=== PATIENT | female | born 1995 | race Caucasian/White ===

== ENCOUNTER 2017-01-23 23:21 | Emergency (ER) | payer BC ==
[~2017-01-23] VITALS: Ht 165.1 cm; Wt 37.7 kg
[~2017-01-23 23:21] MED LIST: MOTRIN 600600 MG/TAB PO; PERCOCET 325 MG1 TA2 PO; PRENATAL MVI PO
[2017-01-23 23:26] VITALS: TEMP 97.2
[2017-01-23] MEDS ORDERED: ULTRAM 50MG TAB50 MG PO (23:46)
[2017-01-23] MEDS ORDERED: ZOFRAN ODT4 MG PO (23:46)
[2017-01-24 00:03] LABS: BASO % 0.2 % (0.0-2.0); EOS % 0.1 % (0-4.0); GRAN # 11.6 (1.4-6.5); GRAN % 81.6 % (42.2-75.2); HEMATOCRIT 39.8 % (37.0-47.0); HEMOGLOBIN 13.3 g/dl (12.5-16.0); LYMPH # 1.6 (1.2-3.4); LYMPH % 11.1 % (20.0-51.0); MEAN CELL VOLUME 91 fl (80.0-100.0); MEAN CORPUSCULAR HEMOGLOBIN 30 pg (27.0-31.0); MEAN CORPUSCULAR HGB CONC 33 g/dl (33.0-37.0); MEAN PLATELET VOLUME 9.8 fl (7.4-10.4); MONO # 0.9 (0.1-0.6); MONO % 6.6 % (1.7-9.3); PLATELET COUNT 199 K/mm3 (130-400); RED BLOOD COUNT 4.37 M/mm3 (4.10-5.30); REDCELL DISTRIBUTION WIDTH-CV 12.9 % (11.5-14.5); WHITE BLOOD COUNT 14.2 K/mm3 (4.8-10.8)
[2017-01-24 00:16] LABS: CREATININE, serum 0.62 mg/dL (0.52-1.25); POTASSIUM 4.2 mmol/L (3.4-5.0)
[2017-01-24 01:29] LABS: PH 7 (5-8); URINE APPEARANCE Hazy; URINE BACTERIA Rare /hpf; URINE BILIRUBIN Negative (NEGATIVE); URINE BLOOD Negative (NEGATIVE); URINE COLOR Yellow; URINE GLUCOSE Negative (NEGATIVE); URINE KETONE Negative (NEGATIVE); URINE UROBILINOGEN Negative (NEGATIVE)
[2017-01-24 03:11] VITALS: BP 112/67; PULSE 60
== END 2017-01-24 03:13 | disposition home or self-care (01) ==
LOC: COL.ER 23:21
PROVIDERS: Emergency Medicine
DX: R10.31 Right lower quadrant pain (principal); R31.9 Hematuria, unspecified; M54.5 Low back pain; Z87.442 Personal history of urinary calculi; Z88.0 Allergy status to penicillin
CPT/HCPCS: J2405; J7030

== ENCOUNTER 2019-07-02 10:02 | Emergency (ER) | payer BC ==
[~2019-07-02] VITALS: Ht 165.1 cm; Wt 44.1 kg
[~2019-07-02 10:02] MED LIST changes: +ULTRAM 50MG TAB50 MG PO; +ZOFRAN ODT4 MG PO
[2019-07-02 10:07] VITALS: TEMP 98.7
[2019-07-02 10:53] LABS: BASO % 0.4 % (0.0-2.0); EOS # 0.2 (0.0-0.7); EOS % 2.8 % (0-4.0); GRAN # 5.9 (1.4-6.5); HEMATOCRIT 40.8 % (37.0-47.0); HEMOGLOBIN 13.9 g/dl (12.5-16.0); LYMPH # 1.6 (1.2-3.4); LYMPH % 18.8 % (20.0-51.0); MEAN CELL VOLUME 89 fl (80.0-100.0); MEAN CORPUSCULAR HEMOGLOBIN 30 pg (27.0-31.0); MEAN CORPUSCULAR HGB CONC 34 g/dl (33.0-37.0); MEAN PLATELET VOLUME 9.6 fl (7.4-10.4); MONO # 0.5 (0.1-0.6); MONO % 5.8 % (1.7-9.3); PLATELET COUNT 183 K/mm3 (130-400); RED BLOOD COUNT 4.57 M/mm3 (4.10-5.30); REDCELL DISTRIBUTION WIDTH-CV 12.2 % (11.5-14.5)
[2019-07-02 11:06] LABS: ALANINE AMINOTRANSFERASE 27 U/L (9-52); ALBUMIN 4.7 gm/dL (3.5-5.0); ALKALINE PHOSPHATASE 86 U/L (50-136); ANION GAP 14 mmol/L (7-16); AST,SGOT 31 U/L (15-37); BILIRUBIN,TOTAL 0.6 mg/dL (0.0-1.0); BLOOD UREA NITROGEN 12 mg/dL (7-17); CALCIUM 9.8 mg/dL (8.4-10.2); CARBON DIOXIDE 21 mmol/L (22-30); CHLORIDE 108 mmol/L (98-107); CREATININE, serum 0.79 (0.52-1.25); GLUCOSE 98 mg/dL (74-106); POTASSIUM 3.7 mmol/L (3.4-5.0); SODIUM 143 mmol/L (137-145); TOTAL PROTEIN 7.6 gm/dL (6.4-8.2)
[2019-07-02 11:07] LABS: C-REACTIVE PROTEIN < 0.5 mg/dL (0.0-0.9)
[2019-07-02 13:10] LABS: COLLECTION METHOD CLEAN CATCH
[2019-07-02 13:18] LABS: MUCOUS Present /lpf; PH 5 (5-8); SQUAMOUS EPITHELIAL 0-2 /hpf; URINE APPEARANCE Clear; URINE BACTERIA None Seen /hpf; URINE BILIRUBIN Negative (NEGATIVE); URINE BLOOD 2+ (NEGATIVE); URINE COLOR Yellow; URINE GLUCOSE Negative (NEGATIVE); URINE KETONE Trace (NEGATIVE); URINE LEUKOCYTE ESTERASE Negative (NEGATIVE); URINE NITRATE Negative (NEGATIVE); URINE PROTEIN(semi-quant) Negative (NEGATIVE); URINE UROBILINOGEN Negative (NEGATIVE)
[2019-07-02] MEDS ORDERED: ZOFRAN 4MG T4 MG/TAB PO (13:29)
[2019-07-02] MEDS ORDERED: NORCO 325 MG-51 TAB PO (13:29)
[2019-07-02 13:45] VITALS: BP 103/65; PULSE 71
== END 2019-07-02 13:50 | disposition home or self-care (01) ==
LOC: COL.ER 10:02
PROVIDERS: Physician Assistant
DX: N23 Unspecified renal colic (principal); R31.9 Hematuria, unspecified; Z87.442 Personal history of urinary calculi; Z88.0 Allergy status to penicillin; Z90.49 Acquired absence of other specified parts of digestive tract; Z98.51 Tubal ligation status; Z98.890 Other specified postprocedural states
CPT/HCPCS: J1885; J2405; J7030

== ENCOUNTER → 2022-03-23 | Outpatient (CLI) | payer BC ==
[~2022-03-23] MED LIST changes: +IBU600 MG PO; +NORCO 325 MG-51 TAB PO; +PRENATAL TABLET PO; +ZOFRAN 4MG T4 MG/TAB PO
== END ==
LOC: DIA.ED 03-09 09:30
DX: O24.419 Gestational diabetes mellitus in pregnancy, unspecified control (principal)
CPT/HCPCS: G0108

== ENCOUNTER 2022-04-03 14:23 | Inpatient (IN) | payer BC ==
[~2022-04-03] VITALS: Ht 165.1 cm; Wt 51.8 kg
[~2022-04-03 14:23] MED LIST changes: -IBU600 MG PO; -PRENATAL TABLET PO
[2022-04-07] VITALS (15 sets, daily range): BP systolic 94–122; BP diastolic 44–78; PULSE 60–84; TEMP 97.5–98.2
[2022-04-07] MEDS ORDERED: PRENATAL TABLET PO (09:04)
[2022-04-07 09:39] LABS: HEMOGLOBIN 11.4 g/dl (12.5-16.0); MEAN CELL VOLUME 89 fl (80.0-100.0); MEAN CORPUSCULAR HEMOGLOBIN 30 pg (27-31); MEAN CORPUSCULAR HGB CONC 33 g/dl (33.0-37.0); MEAN PLATELET VOLUME 10.2 fl (7.4-10.4); PLATELET COUNT 219 K/mm3 (130-400); RED BLOOD COUNT 3.85 M/mm3 (4.10-5.30); REDCELL DISTRIBUTION WIDTH-CV 13.3 % (11.5-14.5)
[2022-04-07 09:42] LABS: HEMATOCRIT 34.4 % (37.0-47.0)
[2022-04-07 10:00] LABS: BAND 2 % (0-10); BASOPHIL 1 % (0-2); PLATELET ESTIMATE NORMAL (NORMAL)
[2022-04-07 10:01] LABS: LYMPHOCYTE 30 % (20.0-51.0); NEUTROPHILS 59 % (42.0-75.2)
--- NOTE | 2022-04-07 13:45 | NUR ---
PERICARE PROVIDED, SOILED BED PADS REMOVED. PERIPAD ON. VSS. FUNDUS FIRM AND AT U. ICE WATER PROVIDED. BELONGINGS AND CALL LIGHT WITHIN REACH
--- NOTE | 2022-04-07 14:30 | NUR ---
SLIGHT DRAINAGE NOTED ON ABDOMINAL DRESSING. DRAINAGE OUTLINED W/ TIME AND DATE NOTED. LOCIA WNL. VSS. PATIENT DENIES PAIN AT THIS TIME.
--- NOTE | 2022-04-07 15:03 | NUR ---
NO INCREASE IN DRAINAGE TO DRESSING NOTED
--- NOTE | 2022-04-07 16:40 | NUR ---
RN ASSISTED PATIENT OUT OF BED. STAND BY ASSIST TO BATHROOM. OROZCO D/C'ED. PERICARE PROVIDED. MESH UNDERWEAR AND YAYA PAD PROVIDED. PT ASSISTED INTO GOWN. BED PAD CHANGED. PT TOLERATED AMBULATION WELL.
[2022-04-08 00:01] VITALS: BP 103/51; PULSE 61; TEMP 98.2
[2022-04-08 05:28] LABS: HEMATOCRIT 27.2 % (37.0-47.0)
[2022-04-08 07:17] VITALS: BP 104/55; PULSE 56; TEMP 97.3
[2022-04-08] MEDS ORDERED: IBU600 MG PO (09:11)
[2022-04-08] MEDS ORDERED: PERCOCET 325 MG1 TA2 PO (09:12)
--- NOTE | 2022-04-08 09:37 | NUR ---
Initial visit; Parents thanked Cost Consultant for offering congratulations and God's blessings for the of their daughter. Cost Consultant thanked family for choosing [facility].
[2022-04-08 12:09] VITALS: BP 104/54; PULSE 60
[2022-04-08 17:00] VITALS: BP 107/55; PULSE 70; TEMP 97.3
[2022-04-08 19:15] VITALS: BP 114/59; PULSE 87; TEMP 98.1
[2022-04-09 07:58] VITALS: BP 106/56; PULSE 72; TEMP 98.2
== END 2022-04-09 10:50 | disposition home or self-care (01) | DRG 788 ==
LOC: OB 04-07 08:45 → LDR 04-07 14:22 → OB 04-09 10:50
PROVIDERS: ADMIT Obstetrics & Gynecology
PROC: 10D00Z1 Extraction of Products of Conception, Low, Open Approach (ICD-10-PCS; principal; 2022-04-07)
DX: O34.211 Maternal care for low transverse scar from previous cesarean delivery (principal); Z37.0 Single live birth; O24.420 Gestational diabetes mellitus in childbirth, diet controlled; O90.81 Anemia of the puerperium; D64.9 Anemia, unspecified; Z3A.40 40 weeks gestation of pregnancy
CPT/HCPCS: J0690; J1100; J1885; J2405; J2590; J3010; J7120